=== PATIENT | female | born 1935 | race African-American/Black ===

== ENCOUNTER 2018-09-08 16:02 | Emergency (ER) | payer MEDICARE ==
[~2018-09-08] VITALS: Ht 167.6 cm; Wt 80.0 kg
[~2018-09-08 16:02] MED LIST: ALBU05; AMLO5TAB4; CALC3.7S7; DIAZ2TAB; METO100T3; NAPR250T; OMEP20CA4
[2018-09-08 18:00] LABS: CLARITY URINE CLEAR (CLEAR); COLOR URINE YELLOW (YELLOW); KETONES URINE NEGATIVE (NEGATIVE); LEUKOCYTE ESTERASE URINE NEGATIVE (NEGATIVE); NITRITE URINE NEGATIVE (NEGATIVE); OCCULT BLOOD URINE NEGATIVE (NEGATIVE); PROTEIN URINE NEGATIVE (NEGATIVE); SPECIFIC GRAVITY URINE 1.032 (1.005-1.030); UROBILINOGEN URINE 0.2 E.U./dL (0.2-1.0)
[2018-09-08 18:53] LABS: CHLORIDE 101 mEq/L (98-107)
[2018-09-08 19:03] LABS: BASOPHILS % 0.6 % (0.0-2.0); EOSINOPHILS % 0.1 % (0.0-5.0); HEMATOCRIT. 44.8 % (36.0-48.0); HEMOGLOBIN. 15.3 g/dL (12.0-16.0); LYMPHOCYTES % 18.4 % (20.0-50.0); MEAN CORPUSCULAR HEMOGLOBIN 30.8 pg (28.0-32.0); MEAN CORPUSCULAR VOLUME 89.8 fL (81.0-99.0); MEAN PLATELET VOLUME 8.2 fl (7.4-10.4); NEUTROPHILS % 77.9 % (40.0-76.0); PLATELET 235 x1000/uL (130-400); RED BLOOD CELL COUNT 4.98 mill/uL (4.2-5.4); RED CELL DISTRIBUTION WIDTH 13.7 % (11.6-14.6)
[2018-09-08 20:25] VITALS: BP 166/73
== END 2018-09-08 20:30 | disposition home or self-care (01) ==
LOC: ER 16:02
DX: K62.89 Other specified diseases of anus and rectum (principal); R35.0 Frequency of micturition; I10 Essential (primary) hypertension; E11.9 Type 2 diabetes mellitus without complications
CPT/HCPCS: 36415; 99284

== ENCOUNTER 2018-09-10 17:40 | Inpatient (IN) | payer MEDICARE, MEDICAID ==
[~2018-09-10] VITALS: Ht 167.6 cm; Wt 68.5 kg
[2018-09-10] MEDS ORDERED: MORPHINE SULFATE 4 MG/ML CPJ (NOT FOR IM USE) IV STA (19:13)
[2018-09-10] MEDS ORDERED: FAMOTIDINE 20MG/2ML VIAL IV STA (19:13)
[2018-09-10 20:11] LABS: BASOPHILS % 0.8 % (0.0-2.0); EOSINOPHILS % 1.1 % (0.0-5.0); HEMATOCRIT. 45.4 % (36.0-48.0); LYMPHOCYTES % 37.7 % (20.0-50.0); MEAN CORPUSCULAR HEMOGLOBIN 31.3 pg (28.0-32.0); MEAN CORPUSCULAR VOLUME 88.7 fL (81.0-99.0); MEAN PLATELET VOLUME 8.1 fl (7.4-10.4); MONOCYTES % 8.3 % (2.0-8.0); NEUTROPHILS % 52.1 % (40.0-76.0); PLATELET 232 x1000/uL (130-400); RED BLOOD CELL COUNT 5.11 mill/uL (4.2-5.4); RED CELL DISTRIBUTION WIDTH 13.9 % (11.6-14.6)
[2018-09-10 20:12] LABS: CHLORIDE 102 mEq/L (98-107)
[2018-09-10 21:02] LABS: CLARITY URINE CLEAR (CLEAR); COLOR URINE YELLOW (YELLOW); KETONES URINE NEGATIVE (NEGATIVE); LEUKOCYTE ESTERASE URINE NEGATIVE (NEGATIVE); NITRITE URINE NEGATIVE (NEGATIVE); OCCULT BLOOD URINE NEGATIVE (NEGATIVE); PH URINE 5.5 (4.5-8.0); PROTEIN URINE NEGATIVE (NEGATIVE); SPECIFIC GRAVITY URINE 1.009 (1.005-1.030); UROBILINOGEN URINE 0.2 E.U./dL (0.2-1.0)
[2018-09-11 08:00] VITALS: BP 162/83
[2018-09-11 08:17] VITALS: BP 162/83
[2018-09-11] MEDS ORDERED: ACETAMINOPHEN 650MG/20.3ML UDC GT PRN (09:45)
[2018-09-11] MEDS ORDERED: HYDROCODONE/ACETAMINOPHEN 5/325MG TABLET PO PRN (09:45)
[2018-09-11] MEDS ORDERED: ENOXAPARIN 40MG/0.4ML SYR SUBCUT SCH (10:00)
[2018-09-11] MEDS ORDERED: AMLODIPINE 5MG TABLET PO SCH (10:00)
[2018-09-11] MEDS ORDERED: GABA-531 MT (11:25)
[2018-09-11] MEDS ORDERED: INSLIS SUBCUT (11:25)
[2018-09-11] MEDS ORDERED: LEVOFLOXACIN 500MG PREMIX 100 ML IV SCH (11:30)
[2018-09-11 12:00] VITALS: BP 135/97
[2018-09-11] MEDS ORDERED: CALCITONIN,SALMON, 3.7 ML NASAL SPRAY ONENSTRL SCH (12:00)
[2018-09-11] MEDS ORDERED: SODIUM CHLORIDE 0.9% INJ 3ML FLUSH IVF SCH (14:00)
[2018-09-11 17:19] VITALS: BP 138/87
[2018-09-11 19:46] VITALS: BP 156/92
[2018-09-11] MEDS ORDERED: METOPROLOL TARTRATE 100MG TABLET PO SCH (21:00)
== END 2018-09-11 18:00 | disposition home or self-care (01) | DRG 700 ==
LOC: ER 19:23 → 6EST 22:43 → ENRESERV 09-11 07:27
PROVIDERS: ADMIT Ophthalmology; ATTEND Ophthalmology
DX: N31.2 Flaccid neuropathic bladder, not elsewhere classified (principal); E11.9 Type 2 diabetes mellitus without complications; I10 Essential (primary) hypertension; K59.09 Other constipation; N39.498 Other specified urinary incontinence; G89.29 Other chronic pain; M54.5 Low back pain; R33.9 Retention of urine, unspecified; Z90.710 Acquired absence of both cervix and uterus; Z79.899 Other long term (current) drug therapy; Z79.51 Long term (current) use of inhaled steroids; Z88.8 Allergy status to other drugs, medicaments and biological substances
CPT/HCPCS: 36415; 51702; 74176; 82962; 96374; 96375; 99285; J1650; J1956; J2270; J3490; J7040

== ENCOUNTER 2018-09-26 14:44 | Emergency (ER) | payer MEDICAID, MEDICARE ==
[~2018-09-26] VITALS: Ht 170.2 cm; Wt 70.0 kg
[~2018-09-26 14:44] MED LIST changes: +GABA-531 MT; +INSLIS SUBCUT
[2018-09-26 18:25] LABS: BASOPHILS % 0.4 % (0.0-2.0); EOSINOPHILS % 0.8 % (0.0-5.0); HEMATOCRIT. 43.6 % (36.0-48.0); HEMOGLOBIN. 14.9 g/dL (12.0-16.0); LYMPHOCYTES % 32.4 % (20.0-50.0); MEAN CORPUSCULAR HEMOGLOBIN 30.8 pg (28.0-32.0); MEAN PLATELET VOLUME 7.8 fl (7.4-10.4); NEUTROPHILS % 57.4 % (40.0-76.0); PLATELET 264 x1000/uL (130-400); RED BLOOD CELL COUNT 4.84 mill/uL (4.2-5.4); RED CELL DISTRIBUTION WIDTH 13.8 % (11.6-14.6)
[2018-09-26 18:29] LABS: CHLORIDE 105 mEq/L (98-107)
[2018-09-26 18:30] LABS: INR 1.1; PROTHROMBIN TIME 11.1 sec (9.1-11.1)
[2018-09-26] MEDS ORDERED: SODIUM CHLORIDE 0.9% 1,000 ML IV ONE (19:26)
[2018-09-26] MEDS ORDERED: ONDANSETRON HCL 4MG/2ML INJ IV STA (19:26)
[2018-09-26] MEDS ORDERED: FAMOTIDINE 20MG/2ML VIAL IV STA (19:26)
[2018-09-26] MEDS ORDERED: MORPHINE SULFATE 2 MG/ML CPJ (NOT FOR IM USE) IV ONE (19:45)
[2018-09-26 22:22] LABS: CLARITY URINE TURBID (CLEAR); COLOR URINE YELLOW (YELLOW); KETONES URINE NEGATIVE (NEGATIVE); LEUKOCYTE ESTERASE URINE 3+ (NEGATIVE); NITRITE URINE NEGATIVE (NEGATIVE); OCCULT BLOOD URINE 1+ (NEGATIVE); PROTEIN URINE NEGATIVE (NEGATIVE); SPECIFIC GRAVITY URINE 1.011 (1.005-1.030); UROBILINOGEN URINE 0.2 E.U./dL (0.2-1.0)
[2018-09-26 22:50] VITALS: BP 146/79
== END 2018-09-26 23:00 | disposition home or self-care (01) ==
LOC: ER 14:44
DX: N39.0 Urinary tract infection, site not specified (principal); R19.7 Diarrhea, unspecified; E11.9 Type 2 diabetes mellitus without complications; I10 Essential (primary) hypertension; Z90.710 Acquired absence of both cervix and uterus; Z88.5 Allergy status to narcotic agent; Z88.8 Allergy status to other drugs, medicaments and biological substances; Z79.84 Long term (current) use of oral hypoglycemic drugs; Z79.4 Long term (current) use of insulin; Z79.899 Other long term (current) drug therapy
CPT/HCPCS: 36415; 74176; 80053; 81003; 82962; 83690; 85025; 85610; 93005; 96374; 96375; 99284; J2270; J2405; J3490; J7030